=== PATIENT | male | born 1960 | race Caucasian/White ===

== ENCOUNTER 2019-01-26 08:14 | Outpatient (CLI) | payer BC ==
--- NOTE | 2019-01-26 08:25 | RAD ---
FEXAM: Chest PA and lateral: HISTORY: Dyspnea COMPARISON: 10/28/2018 FINDINGS: Lung borrego are clear. Vascular markings are normal. Heart and mediastinum appear unremarkable. Vascularity is normal. Osseous structures are unremarkable. IMPRESSION: Unremarkable chest
== END 2019-01-26 08:15 | disposition home or self-care (01) ==
LOC: RAD 08:14
PROVIDERS: ATTEND Internal Medicine Critical Care Medicine
DX: R06.00 Dyspnea, unspecified (principal)
CPT/HCPCS: 71046